=== PATIENT | female | born 1935 | race African-American/Black ===

== ENCOUNTER 2023-09-29 07:57 | Emergency (ER) | payer BC, MEDICARE ==
[~2023-09-29] VITALS: Ht 165.1 cm; Wt 80.0 kg
[2023-09-29 08:12] VITALS: O2SAT 98
[2023-09-29] MEDS ORDERED: MECLIZINE 25MG TABLET PO ONE (08:45)
[2023-09-29 09:07] LABS: BASOPHILS % 1.2 % (0.0-2.0); EOSINOPHILS % 1.3 % (0.0-5.0); HEMATOCRIT. 37.5 % (36.0-48.0); HEMOGLOBIN. 12.1 g/dL (12.0-16.0); LYMPHOCYTES % 20.8 % (20.0-50.0); MEAN CORPUSCULAR HEMOGLOBIN 28.7 pg (28.0-32.0); MEAN CORPUSCULAR HGB CONC 32.3 g/dL (31.0-37.0); MEAN CORPUSCULAR VOLUME 88.8 fL (81.0-99.0); MEAN PLATELET VOLUME 8.7 fl (7.4-10.4); MONOCYTES % 5.8 % (2.0-8.0); NEUTROPHILS % 70.9 % (40.0-76.0); PLATELET 300 x1000/uL (130-400); RED BLOOD CELL COUNT 4.22 mill/uL (4.2-5.4); RED CELL DISTRIBUTION WIDTH 14.7 % (11.6-14.6); WHITE BLOOD COUNT 6.7 x1000/uL (4.5-11.0)
[2023-09-29 09:17] LABS: CHLORIDE 105 mEq/L (98-107); POTASSIUM 4.3 mEq/L (3.5-5.1); SODIUM 138 mEq/L (136-145)
[2023-09-29 09:18] LABS: CARBON DIOXIDE 26 mEq/L (21-32)
[2023-09-29 09:19] LABS: CALCIUM 9.5 mg/dL (8.7-10.4)
[2023-09-29 09:23] LABS: CREATININE 0.9 mg/dL (0.6-1.0); GLUCOSE 242 mg/dL (70-105); UREA NITROGEN BLOOD 25 mg/dL (9-23)
[2023-09-29 09:24] LABS: TROPONIN I HIGH SENSITIVITY 9 ng/L (3.0-34)
[2023-09-29 09:25] LABS: ALANINE AMINOTRANSFERASE 14 IU/L (10-49); ALBUMIN 4.7 g/dL (3.2-4.8); ASPARTATE AMINOTRANSFERASE 16 IU/L (<34)
[2023-09-29 09:26] LABS: BILIRUBIN TOTAL 0.6 mg/dL (0.1-1.0); PROTEIN TOTAL 7.9 g/dL (6.0-8.3)
[2023-09-29] MEDS: MECLIZINE 12.5MG TABLET PO NR (09:58)
[2023-09-29 13:52] LABS: CLARITY URINE CLOUDY (CLEAR); COLOR URINE YELLOW (YELLOW); GLUCOSE URINE TRACE (NEGATIVE); KETONES URINE NEGATIVE (NEGATIVE); LEUKOCYTE ESTERASE URINE TRACE (NEGATIVE); NITRITE URINE POSITIVE (NEGATIVE); OCCULT BLOOD URINE NEGATIVE (NEGATIVE); PH URINE 7.5 (4.5-8.0); PROTEIN URINE 1+ (NEGATIVE); SPECIFIC GRAVITY URINE 1.015 (1.005-1.030); UROBILINOGEN URINE 0.2 E.U./dL (0.2-1.0)
[2023-09-29] MEDS ORDERED: CEPH500C2 MT (14:01)
[2023-09-29] MEDS ORDERED: MECL-299 MT (14:01)
[2023-09-29 14:04] LABS: BACTERIA URINE 3+; RBC URINE 0-2 /hpf (0-2); SQUAMOUS EPITHELIAL CELL URINE 1+ /lpf (RARE/1+); YEAST URINE NONE SEEN
[2023-09-29 14:54] VITALS: BP 157/72; PULSE 75; RESP 16; TEMP 98.5
== END 2023-09-29 14:59 | disposition home or self-care (01) ==
LOC: ER 08:50
DX: N39.0 Urinary tract infection, site not specified (principal); R42 Dizziness and giddiness; E11.9 Type 2 diabetes mellitus without complications; I10 Essential (primary) hypertension
CPT/HCPCS: 99285; 70450; 71045; 80053; 81003; 83880; 85025; 84484; 36415; 93005; J8597